=== PATIENT | female | born 1950 | race Caucasian/White ===

== ENCOUNTER 2016-10-06 13:49 | Emergency (ER) | payer OTHER ==
[~2016-10-06] VITALS: Ht 175.3 cm; Wt 119.3 kg
[~2016-10-06 13:49] MED LIST: ASPIR-LOW81 MG PO; CELECOXIB200 MG PO; CLARITIN10 M3 PO; COUMADIN2 MG PO; ENDOCET 5-3251 EACH PO; FLONASE16 G1 BOTH NARES; GLUCOPHAGE500 M1 PO; HYDROCHLOROTH12.5 M3 PO; LEVOTHYROXINE112 MCG PO; LEVOXYL100 MCG PO; LISINOPRIL10 MG PO; MICROZIDE12.5 M1 PO; OMEPRAZOLE20 MG PO; SIMVASTATIN20 MG PO; ULTRAM50 MG PO; VITAMIN D5000 UNIT PO
[2016-10-06] MEDS ORDERED: FLEXERIL5 MG PO (16:31)
[2016-10-06] MEDS ORDERED: TRAMADOL HCL50 MG PO (16:31)
[2016-10-06 16:39] VITALS: BP 138/84
== END 2016-10-06 16:41 | disposition home or self-care (01) ==
LOC: EME 13:49 → RME 13:49
DX: S70.01XA Contusion of right hip, initial encounter (principal); S86.911A Strain of unspecified muscle(s) and tendon(s) at lower leg level, right leg, initial encounter; V03.00XA Pedestrian on foot injured in collision with car, pick-up truck or van in nontraffic accident, initial encounter; E11.9 Type 2 diabetes mellitus without complications; G89.29 Other chronic pain; E78.5 Hyperlipidemia, unspecified; I10 Essential (primary) hypertension; K21.9 Gastro-esophageal reflux disease without esophagitis; Z87.891 Personal history of nicotine dependence
CPT/HCPCS: 73502; 73564; 99281; 99284